=== PATIENT | female | born 1955 | race Caucasian/White ===

== ENCOUNTER 2024-02-15 11:03 | Emergency (ER) | payer OTHER ==
--- NOTE | 2024-02-15 12:12 | RAD REPORT ---
EXAM DESCRIPTION: CT - Head Brain Wo Cont - 02/15/2024 12:02 pm CLINICAL HISTORY: HEADACHE COMPARISON: No comparisons TECHNIQUE: All CT scans are performed using dose optimization technique as appropriate and may inclu de automated exposure control or mA/KV adjustment according to patient size. FINDINGS: No intracranial hemorrhage, hydrocephalus or extra-axial fluid collection.No areas of brai n edema or evidence of midline shift. Mucous retention cyst in the right maxillary sinus . The calvarium is intact. IMPRESSION: No acute intracranial abnormality.
[2024-02-15 12:26] LABS: Absolute Basophils 0.1 K/uL (0-0.5); Absolute Eosinophils 0.2 K/uL (0-0.5); Absolute Monocytes 0.7 K/uL (0.1-1.3); Absolute Neutrophil 6.5 K/uL (1.8-8.0); Basophils % 0.8 % (0-1.3); Eosinophils % 2.6 % (0-4.4); Hematocrit 41.6 % (36.0-45.0); Hemoglobin 13.6 g/dL (12.0-15.0); Lymphocytes % 12.1 % (15.3-44.8); MCH 30.7 pg (27.0-35.0); MCHC 32.6 g/dL (32.0-36.0); MPV 8.3 fL (7.6-11.3); Monocytes % 8.6 % (3.3-12.3); Neutrophils % 75.9 % (41.7-73.7); Platelets 259 thou/uL (152-406); RBC Red Blood Cell Count 4.42 M/uL (3.86-4.86)
[2024-02-15 12:43] LABS: Albumin 3.6 g/dL (3.4-5.0); Albumin/Globulin Ratio 0.8 (1.1-1.8); Anion Gap 8.9 mEq/L (5.0-15.0); Bilirubin Total 0.4 mg/dL (0.2-1.0); Globulin 4.3 g/dL (2.3-3.5); Potassium 3.9 mEq/L (3.5-5.1); Protein, Total 7.9 g/dL (6.4-8.2)
--- NOTE | 2024-02-15 14:17 | EDPHYS ---
Physician Documentation [facility] Name: Krista Damon Age: 68 yrs Sex: Female : 1955 Arrival Date: 02/15/2024 Time: 11:03 Bed 20 Private MD: ED Physician Clarissa Linton HPI: 02/14 12:30 This 68 yrs old Female presents to ER via Ambulatory with complaints of Headache. sp3 12:30 68-year-old female with history of osteopenia now presents to the ED with chief sp3 complaint left-sided headache after having constipation and straining. Patient recently had a T12 compression fracture after lifting something heavy and since then she states she has been having off-and-on constipation. She went to an urgent care a few days ago where she received antibiotics and pain medication which have not helped. She saw Dr. Cee SPENCER for the constipation yesterday after which she prescribed some OTC meds. She mentioned headache to him but recommended no further workup. She presents to the ED here for continued headache. She states she is mainly here just to make sure there is nothing critical going on. She declines any pain medication. Review of systems negative for fever, sinus drainage, neck pain, dental pain, chest pain, shortness of breath, back pain, abdominal pain, nausea, vomiting, diarrhea, syncope, near syncope, numbness or tingling, focal neurological deficits, travel history, known sick contacts, or any other signs or symptoms on ROS at this time.. 13:[address] scan of the head is negative. Laboratory values are sp3 normal. We will safely discharge patient home at this time.. Historical: - Allergies: 11:19 Levaquin; dd2 - Home Meds: 11:19 gabapentin 300 mg oral capsule 1 cap every day at bedtime [Active]; amoxicillin-pot dd2 clavulanate 875-125 mg Oral tablet 1 tab 2 times per day [Active]; - PMHx: 11:19 Osteopenia; dd2 - PSHx: 11:19 None; dd2 - Immunization history:: Adult Immunizations up to date. - Infectious Disease History:: Denies. - Social history:: Smoking status: Patient denies any tobacco usage or history of. ROS: 12:31 Constitutional: Negative for fever, chills, and weight loss, Eyes: Negative for injury, sp3 pain, redness, and discharge, Neck: Negative for injury, pain, and swelling, Cardiovascular: Negative for chest pain, palpitations, and edema, Respiratory: Negative for shortness of breath, cough, wheezing, and pleuritic chest pain, Abdomen/GI: Negative for abdominal pain, nausea, vomiting, diarrhea, and constipation, Back: Negative for injury and pain, MS/Extremity: Negative for injury and deformity, Skin: Negative for injury, rash, and discoloration, Psych: Negative for depression, anxiety, suicide ideation, homicidal ideation, and hallucinations, Allergy/Immunology: Negative for hives, rash, and allergies, Endocrine: Negative for neck swelling, polydipsia, polyuria, polyphagia, and marked weight changes, 12:31 All other systems are negative, Exam: 12:32 Constitutional: This is a well developed, well nourished patient who is awake, alert, sp3 and in no acute distress. Head/Face: Normocephalic, atraumatic. Eyes: Pupils equal round and reactive to light, extra-ocular motions intact. Lids and lashes normal. Conjunctiva and sclera are non-icteric and not injected. Cornea within normal limits. Periorbital areas with no swelling, redness, or edema. ENT: Nares patent. No nasal discharge, no septal abnormalities noted. External auditory canals are clear. Oropharynx with no redness, swelling, or masses, exudates, or evidence of obstruction, uvula midline. Mucous membranes moist. Neck: Trachea midline, no thyromegaly or masses palpated, and no cervical lymphadenopathy. Supple, full range of motion without nuchal rigidity, or vertebral point tenderness. No Meningismus. Chest/axilla: Normal chest wall appearance and motion. Nontender with no deformity. No lesions are appreciated. Cardiovascular: Regular rate and rhythm with a normal S1 and S2. No gallops, murmurs, or rubs. Normal PMI, no JVD. No pulse deficits. Respiratory: Lungs have equal breath sounds bilaterally, clear to auscultation and percussion. No rales, rhonchi or wheezes noted. No increased work of breathing, no retractions or nasal flaring. Abdomen/GI: Soft, non-tender, with normal bowel sounds. No distension or tympany. No guarding or rebound. No evidence of tenderness throughout. Back: No spinal tenderness. No costovertebral tenderness. Full range of motion. Skin: Warm, dry with normal turgor. Normal color with no rashes, no lesions, and no evidence of cellulitis. MS/ Extremity: Pulses equal, no cyanosis. Neurovascular intact. Full, normal range of motion. Neuro: Awake and alert, GCS 15, oriented to person, place, time, and situation. Cranial nerves II-XII grossly intact. Motor strength 5/5 in all extremities. Sensory grossly intact. Cerebellar exam normal. Normal gait. Psych: Awake, alert, with orientation to person, place and time. Behavior, mood, and affect are within normal limits. Vital Signs: 11:13 BP 124 / 78; Pulse 84; Resp 18; Temp 97.2; Pulse Ox 99% ; Weight 68.95 kg; Height 5 ft. dd2 6 in. ; 13:06 BP 128 / 91; Pulse 78; Resp 17 S; Pulse Ox 98% on R/A; kc6 14:26 BP 138 / 70; Pulse 80; Resp 17 S; Pulse Ox 100% on R/A; kc6 11:13 Body Mass Index 24.53 (68.95 kg, 167.64 cm) dd2 MDM: 11:30 Patient medically screened. sp3 12:32 Data reviewed: vital signs, nurses notes. sp3 12:38 ED course: 68-year-old female with headache for the last 48 hours after straining. Will sp3 obtain CT scan of the head and general labs. I am not highly concerned about any intracranial pathology, stroke or mass. CT scan returned at 1230 which demonstrates normal study. Laboratory values are pending. If workup is negative, we will reassure patient and safely discharge her home will continue follow-up to GI.. 14:15 ED course: Full workup negative. Patient still has headache and declines narcotic meds sp3 at this time. I will prescribe tramadol because she changes her mind. She elects to "clear her bowels first" and then worry about the headache. She will follow-up with her PCP. Patient very grateful for her care and all questions been answered. Patient will be safely discharged home at this time.. 02/14 11:50 Order name: CBC with Diff; Complete Time: 12:30 sp3 02/14 11:50 Order name: CMP; Complete Time: 13:17 sp3 02/14 11:50 Order name: CT Head Brain wo Cont; Complete Time: 12:30 sp3 02/14 11:50 Order name: IV Saline Lock; Complete Time: 12:15 sp3 02/14 11:50 Order name: Labs collected and sent; Complete Time: 12:15 sp3 Administered Medications: No medications were administered Disposition Summary: 02/15/24 14:17 Discharge Ordered Notes: Location: Home sp3 Condition: Stable sp3 Diagnosis - Headache sp3 Followup: sp3 - With: Private Physician - When: Upon discharge from the Emergency Department - Reason: Continuance of care Discharge Instructions: - Discharge Summary Sheet sp3 - General Headache Without Cause sp3 Forms: - Medication Reconciliation Form sp3 - Antibiotic Education sp3 - Prescription Opioid Use sp3 - Patient Portal Instructions sp3 - Leadership Thank You Letter sp3 Prescriptions: - Tramadol 50 mg Oral Tablet - take 1 tablet ORAL route every 8 hours as needed; 12 tablet; Refills: 0, sp3 Product Selection Permitted Signatures: Dispatcher [employer] EDMS Clarissa Linton MD MD sp3 MARTIR KIM RN RN dd2 Corrections: (The following items were deleted from the chart) 11:21 11:19 Home Meds: Fosamax 70 mg Oral tab 1 tab once wkly; dd2 dd2 11:51 11:51 Head Brain Wo Cont+CT.RAD.BRZ ordered. EDMS EDMS
--- NOTE | 2024-02-15 14:17 | ER ---
Nurse's Notes [facility] Name: Krista Damon Age: 68 yrs Sex: Female : 1955 Arrival Date: 02/15/2024 Time: 11:03 Bed 20 Private MD: Diagnosis: Headache Presentation: 02/14 11:13 Chief complaint: Patient states: having headaches "for awhile", fx T12 last month, not dd2 sure if hurt self then or when straining going to the bathroom, has a lot of constipation. Also having sharp pains in left ear, left eye area and left back of head. Went to urgent care, had toradol shot and gave amoxicillin rx. Coronavirus screen: At this time, the client does not indicate any symptoms associated with coronavirus-19. Ebola Screen: No symptoms or risks identified at this time. Initial Sepsis Screen: Does the patient meet any 2 criteria? No. Patient's initial sepsis screen is negative. Does the patient have a suspected source of infection? No. Patient's initial sepsis screen is negative. Risk Assessment: Do you want to hurt yourself or someone else? Patient reports no desire to harm self or others. Onset of symptoms is unknown. 11:13 Method Of Arrival: Ambulatory dd2 11:13 Acuity: REMEDIOS 4 dd2 Triage Assessment: 11:19 Headache History: Denies prior headaches. General: Appears in no apparent distress. dd2 Behavior is cooperative, anxious. Pain: Pain currently is 10 out of 10 on a pain scale. Pain began 2-3 days ago. Also complains of constipation. Neuro: Reports headache. Historical: - Allergies: 11: Levaquin; dd2 - Home Meds: : gabapentin 300 mg oral capsule 1 cap every day at bedtime [Active]; amoxicillin-pot dd2 clavulanate 875-125 mg Oral tablet 1 tab 2 times per day [Active]; - PMHx: : Osteopenia; dd2 - PSHx: :19 None; dd2 - Immunization history:: Adult Immunizations up to date. - Infectious Disease History:: Denies. - Social history:: Smoking status: Patient denies any tobacco usage or history of. Screenin:16 [facility] ED Fall Risk Assessment (Adult) History of falling in the last 3 months, kc6 including since admission No falls in past 3 months (0 pts) Confusion or Disorientation No (0 pts) Intoxicated or Sedated No (0 pts) Impaired Gait No (0 pts) Mobility Assist Device Used No (0 pt) Altered Elimination No (0 pt) Score/Fall Risk Level 0 - 2 = Low Risk. Abuse screen: Denies threats or abuse. Denies injuries from another. Nutritional screening: No deficits noted. Tuberculosis screening: No symptoms or risk factors identified. Assessment: 12:16 General: Appears in no apparent distress. uncomfortable, well groomed, well developed, kc6 Behavior is calm, cooperative, appropriate for age. Neuro: Level of Consciousness is awake, alert, obeys commands, Oriented to person, place, time, situation, Appropriate for age Reports headache frontal area. Cardiovascular: Denies chest pain, shortness of breath, Capillary refill < 3 seconds. Respiratory: Airway is patent Trachea midline Respiratory effort is even, unlabored, Respiratory pattern is regular, symmetrical. GI: No signs and/or symptoms were reported involving the gastrointestinal system. : No signs and/or symptoms were reported regarding the genitourinary system. EENT: No signs and/or symptoms were reported regarding the EENT system. Derm: No signs and/or symptoms reported regarding the dermatologic system. Skin is intact, is healthy with good turgor, Skin is pink, warm \\T\\ dry. Musculoskeletal: No signs and/or symptoms reported regarding the musculoskeletal system. Circulation, motion, and sensation intact. Capillary refill < 3 seconds, Range of motion: intact in all extremities. 13:06 Reassessment: Patient appears in no apparent distress at this time. No changes from kc6 previously documented assessment. Patient and/or family updated on plan of care and expected duration. Pain level reassessed. Patient is alert, oriented x 3, equal unlabored respirations, skin warm/dry/pink. 14:26 Reassessment: Patient appears in no apparent distress at this time. No changes from kc6 previously documented assessment. Patient and/or family updated on plan of care and expected duration. Pain level reassessed. Patient is alert, oriented x 3, equal unlabored respirations, skin warm/dry/pink. Vital Signs: 11:13 BP 124 / 78; Pulse 84; Resp 18; Temp 97.2; Pulse Ox 99% ; Weight 68.95 kg; Height 5 ft. dd2 6 in. ; 13:06 BP 128 / 91; Pulse 78; Resp 17 S; Pulse Ox 98% on R/A; kc6 14:26 BP 138 / 70; Pulse 80; Resp 17 S; Pulse Ox 100% on R/A; kc6 11:13 Body Mass Index 24.53 (68.95 kg, 167.64 cm) dd2 ED Course: 11:06 Patient arrived in ED. mg5 11:19 Triage completed. dd2 11:19 Clarissa Linton MD is Attending Physician. sp3 11:19 Arm band placed on right wrist. Patient placed in an exam room, on a stretcher, on dd2 pulse oximetry, Patient notified of wait time. 11:26 Tamy Ontiveros, RN is Primary Nurse. kc6 12:04 CT Head Brain wo Cont In Process Unspecified. EDMS 12:15 Patient has correct armband on for positive identification. Bed in low position. Call kc6 light in reach. Side rails up X 1. Pulse ox on. NIBP on. Door closed. Noise minimized. Lights dimmed. Warm blanket given. Pillow given. 12:15 Inserted saline lock: 20 gauge in left antecubital area, using aseptic technique. Blood kc6 collected. Flushed with 10 mL NS. 14:29 No provider procedures requiring assistance completed. IV discontinued, intact, kc6 bleeding controlled, No redness/swelling at site. Pressure dressing applied. Administered Medications: No medications were administered Medication: 14:30 VIS not applicable for this client. kc6 Outcome: 14:17 Discharge ordered by . sp3 14:29 Discharged to home ambulatory, with friend, kc6 14:29 Condition: good 14:29 Discharge instructions given to patient, Instructed on discharge instructions, follow up and referral plans. no drinking with medication, no driving heavy equipment, medication usage, Demonstrated understanding of instructions, follow-up care, medications, Prescriptions given X 1, 14:30 Patient left the ED. kc6 Signatures: Dispatcher [employer] EDMS Clarissa Linton MD MD sp3 Tamy Ontiveros, RN RN kc6 Briana Harris mg5 MARTIR KIM RN RN dd2 Corrections: (The following items were deleted from the chart) 11:21 11:19 Home Meds: Fosamax 70 mg Oral tab 1 tab once wkly; dd2 dd2
[2024-02-15 14:47] VITALS: TEMP 97.2
[2024-02-15 14:54] VITALS: BP 138/70; O2SAT 100
== END 2024-02-15 14:30 | disposition home or self-care (01) ==
LOC: ER 11:03
DX: R51.9 Headache, unspecified (principal); K59.00 Constipation, unspecified; M85.80 Other specified disorders of bone density and structure, unspecified site
CPT/HCPCS: 36415; 70450; 80053; 85025

== ENCOUNTER 2024-02-20 11:04 | Emergency (ER) | payer OTHER ==
[2024-02-20 12:12] LABS: Absolute Eosinophils 0.1 K/uL (0-0.5); Absolute Lymphocytes (CBC) 0.6 K/uL (0.7-4.9); Absolute Monocytes 0.7 K/uL (0.1-1.3); Absolute Neutrophil 6.3 K/uL (1.8-8.0); Basophils % 0.4 % (0-1.3); Eosinophils % 1.2 % (0-4.4); Hematocrit 38.4 % (36.0-45.0); Hemoglobin 12.8 g/dL (12.0-15.0); Lymphocytes % 8.4 % (15.3-44.8); MCH 31.4 pg (27.0-35.0); MCHC 33.3 g/dL (32.0-36.0); MCV 94.4 fL (80-100); MPV 7.8 fL (7.6-11.3); Monocytes % 8.8 % (3.3-12.3); Neutrophils % 81.2 % (41.7-73.7); Platelets 252 thou/uL (152-406); RBC Red Blood Cell Count 4.07 M/uL (3.86-4.86); Red Cell Distribution Width 13.8 % (12.1-15.2)
[2024-02-20] MEDS ORDERED: KETOROLAC 30 MG/ML INJ ONE (12:26)
[2024-02-20] MEDS ORDERED: ACETAMINOPHEN 500 MG TAB ONE (12:29)
--- NOTE | 2024-02-20 12:29 | RAD REPORT ---
EXAM DESCRIPTION: RAD - Chest Single View - 02/20/2024 12:16 pm CLINICAL HISTORY: CHEST PAIN COMPARISON: Chest Pa And Lat (2 Views) dated 06/28/2016 FINDINGS: Lines: None. Lungs: No evidence of edema or pneumonia. Pleural: No significant pleural effusions or pneumothorax. Cardiac: The heart size is within normal limits. Mediastinum: Within normal limits. Bones: No acute fractures. Other: None IMPRESSION: No acute cardiopulmonary disease.
[2024-02-20 12:30] LABS: Anion Gap 6.1 mEq/L (5.0-15.0); BUN Blood Urea Nitrogen 15 mg/dL (7-18); Bicarbonate 27 mEq/L (21-32); Glomerular Filtration Rate 90 ml/min (=/>90); Glucose Level 99 mg/dL (74-106); Potassium 4.1 mEq/L (3.5-5.1); Sodium Level 136 mEq/L (136-145)
[2024-02-20 12:31] LABS: Troponin High Sensitivity < 3.0 pg/mL (<58.9)
--- NOTE | 2024-02-20 12:54 | ER ---
Nurse's Notes [facility] Name: Krista Damon Age: 68 yrs Sex: Female : 1955 Arrival Date: 02/20/2024 Time: 11:04 Bed 17 Private MD: Diagnosis: Dizziness and giddiness;Anxiety disorder, unspecified Presentation: 02/19 11:20 Chief complaint: Patient states: STARTED TAKING [employer] WEDNESDAY TODAY HAS DIZZINESS AND db NAUSEA. STATES HAS BEEN TAKING MEDICATION ON EMPTY STOMACH. DX WITH SHINGLES TO LEFT INNER EAR WEDNESDAY BY DR BLANK. STATES HAD RECENT CT SCAN. Coronavirus screen: Client denies travel out of the [place] in the last 14 days. At this time, the client does not indicate any symptoms associated with coronavirus-19. Ebola Screen: Patient negative for fever greater than or equal to 101.5 degrees Fahrenheit, and additional compatible Ebola Virus Disease symptoms Patient denies exposure to infectious person. Patient denies travel to an Ebola-affected area in the 21 days before illness onset. No symptoms or risks identified at this time. Initial Sepsis Screen: Does the patient meet any 2 criteria? No. Patient's initial sepsis screen is negative. Does the patient have a suspected source of infection? No. Patient's initial sepsis screen is negative. Risk Assessment: Do you want to hurt yourself or someone else? Patient reports no desire to harm self or others. Onset of symptoms was February 20, 2024. 11:20 Method Of Arrival: Ambulatory db 11:20 Acuity: REMEDIOS 2 db Triage Assessment: 11:29 General: Appears in no apparent distress. comfortable, Behavior is calm, cooperative. db Pain: Denies pain. Neuro: Level of Consciousness is awake, alert, obeys commands, Oriented to person, place, time, situation. Respiratory: Reports Airway is patent Respiratory effort is even, unlabored, Respiratory pattern is regular, symmetrical, Onset: The symptoms/episode began/occurred gradually, the patient has mild shortness of breath. Historical: - Allergies: 11:16 Levaquin; mb9 - PMHx: 11:16 Osteopenia; mb9 - Immunization history:: Adult Immunizations unknown. - Infectious Disease History:: Denies. - Social history:: Smoking status: Patient denies any tobacco usage or history of. Screenin:40 [facility] ED Fall Risk Assessment (Adult) History of falling in the last 3 months, aa5 including since admission No falls in past 3 months (0 pts) Confusion or Disorientation No (0 pts) Intoxicated or Sedated No (0 pts) Impaired Gait No (0 pts) Mobility Assist Device Used No (0 pt) Altered Elimination No (0 pt) Score/Fall Risk Level 0 - 2 = Low Risk Oriented to surroundings, Maintained a safe environment, Educated pt \T\ family on fall prevention, incl call for assistance when getting out of bed. Abuse screen: Denies threats or abuse. Nutritional screening: No deficits noted. Tuberculosis screening: No symptoms or risk factors identified. Assessment: 11:40 General: Appears comfortable, Behavior is calm, cooperative. Pain: Complains of pain in aa5 left side of head. Neuro: Level of Consciousness is awake, alert, obeys commands, Oriented to person, place, time, situation, [employer] [place] are equal bilaterally Moves all extremities. Speech is normal, Facial symmetry appears normal. Cardiovascular: Heart tones S1 S2 present Rhythm is sinus rhythm. Respiratory: Airway is patent Respiratory effort is even, unlabored, Respiratory pattern is regular, symmetrical. GI: Abdomen is non-distended, Bowel sounds present X 4 quads. Abd is soft and non tender X 4 quads. Reports nausea, Patient currently denies vomiting. : No signs and/or symptoms were reported regarding the genitourinary system. EENT: Reports diagnosed with shingles to left ear 1 week ago. . Derm: Skin is pink, warm \T\ dry. Musculoskeletal: Range of motion: intact in all extremities. 12:25 Reassessment: Pt requesting pain medication for headache, does not want any narcotics, aa5 PA was notified. . 13:45 Reassessment: Patient is alert, oriented x 3, equal unlabored respirations, skin aa5 warm/dry/pink. Vital Signs: 11:20 BP 133 / 95; Pulse 86; Resp 16; Temp 99.2; Pulse Ox 98% ; Weight 68.95 kg; Height 5 ft. db 6 in. ; 12:09 BP 110 / 57; Pulse 67; Resp 16; Temp 98.4; Pulse Ox 99% ; go2 12:34 BP 108 / 61; Pulse 75; Resp 20 S; Pulse Ox 98% on R/A; aa5 11:20 Body Mass Index 24.53 (68.95 kg, 167.64 cm) db ED Course: 11:07 Patient arrived in ED. im 11:09 Esther Moe, OSWALDO is Primary Nurse. mb9 11:12 Mick Casarez PA is PHCP. jr8 11:12 Roberto Sainz MD is Attending Physician. jr8 11:16 Arm band placed on. mb9 11:29 Triage completed. db 11:30 Patient placed in an exam room. db 11:35 Emily Kong, RN is Primary Nurse. aa5 11:40 Patient has correct armband on for positive identification. Bed in low position. Call aa5 light in reach. Side rails up X 1. 11:40 Client placed on continuous cardiac and pulse oximetry monitoring. NIBP monitoring aa5 applied. bus driver/monitor on. Pulse ox on. NIBP on. 12:08 CBC with Diff Sent. go2 12:08 Basic Metabolic Panel Sent. go2 12:08 Troponin HS Sent. go2 12:09 Inserted saline lock: 20 gauge in right antecubital area, using aseptic technique. go2 12:17 XRAY Chest (1 view) In Process Unspecified. EDMS 13:45 No provider procedures requiring assistance completed. IV discontinued, intact, aa5 bleeding controlled, No redness/swelling at site. Pressure dressing applied. Administered Medications: 12:28 Not Given (Patient Refused): [id number] mg IVP once hb 12:31 Drug: Acetaminophen PO 1000 mg PO once Route: PO; aa5 13:45 Follow up: Response: No adverse reaction aa5 Medication: 12:44 VIS not applicable for this client. aa5 Outcome: 12:54 Discharge ordered by . jr8 13:45 Discharged to home ambulatory, aa5 13:45 Condition: stable 13:45 Discharge instructions given to patient, Instructed on discharge instructions, follow up and referral plans. Demonstrated understanding of instructions, follow-up care, 13:49 Patient left the ED. hb Signatures: Dispatcher [employer] EDMS Emily Kong, OSWALDO CHACON aa5 Mick Casarez PA PA jr8 Yakelin Lopez RN RN Malaika Nation RN RN db Esther Moe, RN OSWALDO mb9 Alison Marroquin Culbertson, Kelly, RN RN go2
--- NOTE | 2024-02-20 12:54 | EDPHYS ---
Physician Documentation [facility] Name: Krista Damon Age: 68 yrs Sex: Female : 1955 Arrival Date: 02/20/2024 Time: 11:04 Bed 17 Private MD: ED Physician Roberto Sainz HPI: 02/19 13:27 This 68 yrs old Female presents to ER via Ambulatory with complaints of Dizziness, jr8 Nausea. 13:27 Onset: The symptoms/episode began/occurred gradually, 1 day(s) ago. Modifying factors: jr8 The symptoms are alleviated by nothing, the symptoms are aggravated by nothing. Associated signs and symptoms: The patient has no apparent associated signs or symptoms. Severity of symptoms: At their worst the symptoms were mild in the emergency department the symptoms have improved. Patient's baseline: Neuro: alert and fully oriented, Motor: no deficits, Ambulation: walks without assistance, Speech: normal. The patient has not experienced similar symptoms in the past. The patient has been recently seen by a physician:. Patient recently diagnosed with internal shingles on the left side after having a continuation of left-sided head pain and ear pain that was sharp in nature. Recently started on valacyclovir. Had been nauseated since being on the medication but today both a little dizzy and short of breath. Was concerned that something else was going on. This past Wednesday because of the head pain also had a CT of the head without acute findings.. Historical: - Allergies: 11:16 Levaquin; mb9 - PMHx: 11:16 Osteopenia; mb9 - Immunization history:: Adult Immunizations unknown. - Infectious Disease History:: Denies. - Social history:: Smoking status: Patient denies any tobacco usage or history of. ROS: 13:27 Eyes: Negative for injury, pain, redness, and discharge, ENT: Negative for injury, jr8 pain, and discharge, Neck: Negative for injury, pain, and swelling, Cardiovascular: Negative for chest pain, palpitations, and edema, 13:27 Abdomen/GI: Negative for abdominal pain, nausea, vomiting, diarrhea, and constipation, Back: Negative for injury and pain, MS/Extremity: Negative for injury and deformity, Skin: Negative for injury, rash, and discoloration, 13:27 Respiratory: Positive for shortness of breath, 13:27 Neuro: Positive for dizziness, Exam: 13:27 Constitutional: This is a well developed, well nourished patient who is awake, alert, jr8 and in no acute distress. Eyes: Pupils equal round and reactive to light, extra-ocular motions intact. Lids and lashes normal. Conjunctiva and sclera are non-icteric and not injected. Cornea within normal limits. Periorbital areas with no swelling, redness, or edema. ENT: Nares patent. No nasal discharge, no septal abnormalities noted. Tympanic membranes are normal and external auditory canals are clear. Oropharynx with no redness, swelling, or masses, exudates, or evidence of obstruction, uvula midline. Mucous membranes moist. Neck: Trachea midline, no thyromegaly or masses palpated, and no cervical lymphadenopathy. Supple, full range of motion without nuchal rigidity, or vertebral point tenderness. No Meningismus. Cardiovascular: Regular rate and rhythm with a normal S1 and S2. No gallops, murmurs, or rubs. Normal PMI, no JVD. No pulse deficits. Respiratory: Lungs have equal breath sounds bilaterally, clear to auscultation and percussion. No rales, rhonchi or wheezes noted. No increased work of breathing, no retractions or nasal flaring. Abdomen/GI: Soft, non-tender, with normal bowel sounds. No distension or tympany. No guarding or rebound. No evidence of tenderness throughout. Back: No spinal tenderness. No costovertebral tenderness. Full range of motion. Skin: Warm, dry with normal turgor. Normal color with no rashes, no lesions, and no evidence of cellulitis. MS/ Extremity: Pulses equal, no cyanosis. Neurovascular intact. Full, normal range of motion. Neuro: Awake and alert, GCS 15, oriented to person, place, time, and situation. Cranial nerves II-XII grossly intact. Motor strength 5/5 in all extremities. Sensory grossly intact. Cerebellar exam normal. Normal gait. 13:27 ECG was reviewed by the Attending Physician. [facility] Vital Signs: 11:20 BP 133 / 95; Pulse 86; Resp 16; Temp 99.2; Pulse Ox 98% ; Weight 68.95 kg; Height 5 ft. db 6 in. ; 12:09 BP 110 / 57; Pulse 67; Resp 16; Temp 98.4; Pulse Ox 99% ; go2 12:34 BP 108 / 61; Pulse 75; Resp 20 S; Pulse Ox 98% on R/A; aa5 11:20 Body Mass Index 24.53 (68.95 kg, 167.64 cm) db MDM: 11:25 Patient medically screened. 12:34 Differential diagnosis: cardiac arrhythmia, CVA, hypovolemia, idiopathic dizziness, jr8 TIA, vertigo, anxiety, HTN. Data reviewed: vital signs, nurses notes, lab test result(s), EKG, radiologic studies, plain films. Independent interpretation of the following test(s) in the Emergency Department EKG: See my EKG interpretation above X-Ray: My interpretation is No acute cardiopulmonary findings . Counseling: I had a detailed discussion with the patient and/or guardian regarding the historical points, exam findings, and any diagnostic results supporting the discharge/admit diagnosis, lab results, radiology results, the need for outpatient follow up, a family practitioner, to return to the emergency department if symptoms worsen or persist or if there are any questions or concerns that arise at home. ED course: Discussed with patient that all labs, imaging, EKG is unremarkable and without acute findings. Patient had CT on Wednesday and was unremarkable. Hemodynamically stable otherwise and patient is doing well. Most likely small anxiety attack coupled with the continuation of pain that she has been experiencing from the internal shingles. Needs to follow-up with primary care to ensure she is doing well. If she were to worsen or have change come back for reevaluation. Patient understood the plan at this time.. 02/19 11:25 Order name: Basic Metabolic Panel; Complete Time: 02/19 11:25 Order name: CBC with Diff; Complete Time: :02/19 11:25 Order name: Troponin HS; Complete Time: 02/19 11:25 Order name: XRAY Chest (1 view); Complete Time: 02/19 11:25 Order name: EKG; Complete Time: 11:02/19 11:25 Order name: Cardiac monitoring; Complete Time: 11:53 02/19 11:25 Order name: EKG - Nurse/Tech; Complete Time: 12:02/19 11:25 Order name: IV Saline Lock; Complete Time: 12:8 02/19 11:25 Order name: Labs collected and sent; Complete Time: 12:8 02/19 11:25 Order name: O2 Per Protocol; Complete Time: 8 02/19 11: Order name: O2 Sat Monitoring; Complete Time: EC:27 Rate is 72 beats/min. Rhythm is regular, Normal Sinus Rhythm. QRS [place] is Normal. [place] jr8 interval is normal. QRS interval is normal. QT interval is normal. No Q waves. T waves are Normal. No ST changes noted. Clinical impression: Normal ECG. Interpreted by me. Reviewed by me. Administered Medications: 12:28 Not Given (Patient Refused): [id number] mg IVP once hb 12:31 Drug: Acetaminophen PO 1000 mg PO once Route: PO; aa5 13:45 Follow up: Response: No adverse reaction aa5 Disposition Summary: 02/20/24 12:54 Discharge Ordered Notes: Location: Home jr8 Problem: new jr8 Symptoms: have improved jr8 Condition: Stable jr8 Diagnosis - Dizziness and giddiness jr8 - Anxiety disorder, unspecified jr8 Followup: jr8 - With: Private Physician - When: 2 - 3 days - Reason: Recheck today's complaints, Continuance of care, Re-evaluation by your physician Discharge Instructions: - Discharge Summary Sheet jr8 - Panic Attack jr8 - Dizziness jr8 Forms: - Medication Reconciliation Form jr8 - Antibiotic Education jr8 - Prescription Opioid Use jr8 - Patient Portal Instructions jr8 - Leadership Thank You Letter jr8 Signatures: Dispatcher [employer] EDTX Emily Kong RN RN aa5 Mick Casarez PA PA jr8 Malaika Nation RN RN db Esther Moe RN RN mb9 Yakelin Lopez RN Corrections: (The following items were deleted from the chart) 12:54 12:34 ED course: Discussed with patient that all labs, imaging, EKG is unremarkable and jr8 without acute findings. Hemodynamically stable otherwise and patient is doing well. Most likely small anxiety attack coupled with the continuation of pain that she has been experiencing from the internal shingles. Needs to follow-up with primary care to ensure she is doing well. If she were to worsen or have change come back for reevaluation. Patient understood the plan at this time.. jr8
[2024-02-20 14:04] VITALS: TEMP 98.4
[2024-02-20 14:10] VITALS: BP 108/61; O2SAT 98
--- NOTE | 2024-02-22 17:52 | EKG ---
Test Date: 2024-02-20 Test Time: 12:22:07 [employer]: LETTY MEASUREMENT RESULTS: Intervals: Rate: 72 FL: 122 QRSD: 68 QT: 394 QTc: 431 Etta: P: 56 FL: 122 QRS: 37 T: 51 INTERPRETIVE STATEMENTS: Normal sinus rhythm Low voltage QRS Borderline ECG No previous ECG available for comparison Electronically Signed On 02-22-24 17:47:45 CDT by Lars Langston
== END 2024-02-20 13:49 | disposition home or self-care (01) ==
LOC: ER 11:04
DX: F41.9 Anxiety disorder, unspecified (principal)
CPT/HCPCS: 36415; 71045; 80048; 84484; 85025; 93005; 99284

== ENCOUNTER 2024-03-13 13:52 | Emergency (ER) | payer OTHER ==
--- NOTE | 2024-03-13 16:00 | RAD REPORT ---
EXAM DESCRIPTION: MRI - Brain Wo Cont - 03/13/2024 3:40 pm CLINICAL HISTORY: Vision loss COMPARISON: Head CT February 2024 TECHNIQUE: Axial, sagittal, and coronal magnetic resonance images of the brain were obtained. FINDINGS: Moderate areas of abnormal signal are present within predominantly deep and subcortical wh ite matter bilaterally. They vary in size from a few millimeters to 7 millimeters. Diffusion-weighted/ADC mapping does not reveal evidence of acute infarction. The ventricles are normal caliber. An extra-axial fluid collection is not noted. Fluid within the sinuses/mastoids is not seen IMPRESSION: Moderate areas of abnormal signal within predominantly deep and subcortical white matter presumably ischemic changes secondary to small vessel disease. Another consideration is that they may represent a demyelinated process such as multiple sclerosis.
--- NOTE | 2024-03-13 16:13 | ER ---
Nurse's Notes [facility] Name: Krista Damon Age: 68 yrs Sex: Female : 1955 Arrival Date: 03/13/2024 Time: 13:52 Bed 5 Private MD: Diagnosis: Headache;Monocular vision loss Presentation: 03/13 14:13 Chief complaint: Patient states: Left sided headache X1 month. Pt states that she was cm10 seen at the eye doctor today and was told to come to the ER for an MRI of the brain due to having vision loss to her left eye since October 04. Coronavirus screen: Client denies travel out of the [place] in the last 14 days. At this time, the client does not indicate any symptoms associated with coronavirus-19. Ebola Screen: Patient denies travel to an Ebola-affected area in the 21 days before illness onset. No symptoms or risks identified at this time. Initial Sepsis Screen: Does the patient meet any 2 criteria? HR > 90 bpm. Does the patient have a suspected source of infection? No. Patient's initial sepsis screen is negative. Risk Assessment: Do you want to hurt yourself or someone else? Patient reports no desire to harm self or others. Onset of symptoms was March 13, 2024. 14:13 Method Of Arrival: Ambulatory cm10 14:13 Acuity: REMEDIOS 3 cm10 Triage Assessment: 14:14 General: Appears in no apparent distress. comfortable, Behavior is calm, cooperative. cm10 Neuro: No deficits noted. Level of Consciousness is awake, alert, obeys commands, Oriented to person, place, time, situation, Appropriate for age. Historical: - Allergies: 14:14 Levaquin; cm10 - PMHx: 14:14 Osteopenia; cm10 - Immunization history:: Adult Immunizations up to date. - Infectious Disease History:: Denies. - Social history:: Smoking status: Patient denies any tobacco usage or history of. - Family history:: not pertinent. Screenin:35 [facility] ED Fall Risk Assessment (Adult) History of falling in the last 3 months, dd2 including since admission No falls in past 3 months (0 pts) Confusion or Disorientation No (0 pts) Intoxicated or Sedated No (0 pts) Impaired Gait No (0 pts) Mobility Assist Device Used No (0 pt) Altered Elimination No (0 pt) Score/Fall Risk Level 0 - 2 = Low Risk Oriented to surroundings, Maintained a safe environment, Hourly rounding (assess needs \T\ fall precautionary measures) done. Abuse screen: Denies threats or abuse. Nutritional screening: No deficits noted. Tuberculosis screening: No symptoms or risk factors identified. Assessment: 14:35 General: Appears in no apparent distress. Behavior is calm, cooperative, appropriate dd2 for age. Pain: Complains of pain in left parietal area Pain currently is 4 out of 10 on a pain scale. Neuro: Level of Consciousness is awake, alert, obeys commands, Oriented to person, place, time, situation, Appropriate for age Reports headache in left parietal area, decrease in vision since October. Cardiovascular: No deficits noted. Respiratory: No deficits noted. GI: No deficits noted. No signs and/or symptoms were reported involving the gastrointestinal system. : No deficits noted. No signs and/or symptoms were reported regarding the genitourinary system. EENT: Reports decrease in vision since October . Derm: No deficits noted. No signs and/or symptoms reported regarding the dermatologic system. Musculoskeletal: No deficits noted. No signs and/or symptoms reported regarding the musculoskeletal system. 16:30 Reassessment: DC HOME AMBULATORY. bp Vital Signs: 14:13 BP 140 / 89; Pulse 104; Resp 16; Temp 97.7; Pulse Ox 98% ; Weight 67.13 kg; Height 5 cm10 ft. 6 in. ; Pain 4/10; 14:56 BP 124 / 81; Pulse 91; Resp 16; Pulse Ox 97% ; dd2 16:02 BP 137 / 93; Pulse 86; Resp 16; Pulse Ox 98% ; dd2 14:13 Body Mass Index 23.89 (67.13 kg, 167.64 cm) cm10 14:13 Pain Scale: Adult cm10 ED Course: 13:55 Patient arrived in ED. jj6 14:05 Devin Castrejon MD is Attending Physician. rt 14:14 Triage completed. cm10 14:14 Arm band placed on Patient placed in an exam room, on a stretcher. cm10 14:35 Patient has correct armband on for positive identification. Bed in low position. Call dd2 light in reach. Side rails up X2. Provided Education on: call light, procedures. Client placed on continuous cardiac and pulse oximetry monitoring. NIBP monitoring applied. Door closed. Warm blanket given. Verbal reassurance given. 14:35 No provider procedures requiring assistance completed. Patient did not have IV access dd2 during this emergency room visit. 14:51 MARTIR KIM, RN is Primary Nurse. dd2 14:53 Patient moved to MRI via wheelchair. ko1 15:42 MRI - Brain Wo Cont In Process Unspecified. EDMS 16:11 Chidi Marie MD is Referral Physician. rt Administered Medications: No medications were administered Medication: 14:35 VIS not applicable for this client. dd2 Outcome: 16:12 Discharge ordered by MD. rt 16:30 Discharged to home ambulatory, bp 16:30 Condition: stable 16:30 Discharge instructions given to patient, Instructed on discharge instructions, follow up and referral plans. Demonstrated understanding of instructions, follow-up care, 16:30 Patient left the ED. bp Signatures: Dispatcher [employer] EDMS Orestes Ayers, RN RN bp Maxine Mcfadden jj6 Anaya King RN RN ko1 Devin Castrejon MD MD rt Pippa Valadez, OSWALDO RN cm10 MARTIR KIM, RN RN dd2
--- NOTE | 2024-03-13 16:13 | EDPHYS ---
Physician Documentation [facility] Name: Krista Damon Age: 68 yrs Sex: Female : 1955 Arrival Date: 03/13/2024 Time: 13:52 Bed 5 Private MD: ED Physician Devin Castrejon HPI: 03/13 15:54 This 68 yrs old Female presents to ER via Ambulatory with complaints of Headache. rt 15:54 Patient presents to the ED with a left-sided headache for about 1 month. Patient had a rt negative CT scan here, primary treating her for an apparent shingles infection possibly causing the pain. The patient subsequently had decreasing vision in her left eye, went to her eye doctor, stated that everything was normal save for visual acuity, no glaucoma, optic nerve appeared to be okay. Was sent here for MRI to rule out central process. Denies other acute complaints at this time, symptoms are moderate in severity, no other aggravating or alleviating factors.. Historical: - Allergies: 14:14 Levaquin; cm10 - PMHx: 14:14 Osteopenia; cm10 - Immunization history:: Adult Immunizations up to date. - Infectious Disease History:: Denies. - Social history:: Smoking status: Patient denies any tobacco usage or history of. - Family history:: not pertinent. ROS: 15:54 Constitutional: Negative for fever, chills, and weight loss, Cardiovascular: Negative rt for chest pain, palpitations, and edema, Respiratory: Negative for shortness of breath, cough, wheezing, and pleuritic chest pain, Abdomen/GI: Negative for abdominal pain, nausea, vomiting, diarrhea, and constipation, MS/Extremity: Negative for injury and deformity, Skin: Negative for injury, rash, and discoloration, 15:54 Eyes: Positive for pain, vision loss, 15:54 ENT: Positive for 15:54 Neuro: Positive for headache, Negative for loss of consciousness, Exam: 15:54 Constitutional: This is a well developed, well nourished patient who is awake, alert, rt and in no acute distress. Chest/axilla: Normal chest wall appearance and motion. Nontender with no deformity. No lesions are appreciated. Cardiovascular: Regular rate and rhythm with a normal S1 and S2. No gallops, murmurs, or rubs. Normal PMI, no JVD. No pulse deficits. Respiratory: Lungs have equal breath sounds bilaterally, clear to auscultation and percussion. No rales, rhonchi or wheezes noted. No increased work of breathing, no retractions or nasal flaring. Abdomen/GI: Soft, non-tender, with normal bowel sounds. No distension or tympany. No guarding or rebound. No evidence of tenderness throughout. 15:54 Eyes: Extraocular movements: intact throughout, Conjunctiva: normal, 15:54 Neuro: Cranial nerves II through XII intact, strength and sensation intact in upper and lower extremities, Vital Signs: 14:13 BP 140 / 89; Pulse 104; Resp 16; Temp 97.7; Pulse Ox 98% ; Weight 67.13 kg; Height 5 cm10 ft. 6 in. ; Pain 4/10; 14:56 BP 124 / 81; Pulse 91; Resp 16; Pulse Ox 97% ; dd2 16:02 BP 137 / 93; Pulse 86; Resp 16; Pulse Ox 98% ; dd2 14:13 Body Mass Index 23.89 (67.13 kg, 167.64 cm) cm10 14:13 Pain Scale: Adult cm10 MDM: 14:15 Patient medically screened. rt 16:24 Differential diagnosis: Multiple sclerosis, chronic ischemia. Data reviewed: vital rt signs, nurses notes, radiologic studies. Consideration of Admission/Observation Escalation of care including admission/observation considered. Management of patient was discussed with the following: Primary Care Provider: Discussed with Dr. Marie, no need to admit, will follow-up the patient as an outpatient, will refer to neurology.. Counseling: I had a detailed discussion with the patient and/or guardian regarding the historical points, exam findings, and any diagnostic results supporting the discharge/admit diagnosis, radiology results, the need for outpatient follow up, to return to the emergency department if symptoms worsen or persist or if there are any questions or concerns that arise at home. 03/13 14:25 Order name: MRI - Brain Wo Cont; Complete Time: 16:01 rt Administered Medications: No medications were administered Disposition Summary: 03/13/24 16:12 Discharge Ordered Notes: Location: Home rt Problem: an ongoing problem rt Symptoms: are unchanged rt Condition: Stable rt Diagnosis - Headache rt - Monocular vision loss rt Followup: rt - With: Chidi Marie MD - When: 2 - 3 days - Reason: Discharge Instructions: - Discharge Summary Sheet rt - General Headache Without Cause rt - Multiple Sclerosis rt Forms: - Medication Reconciliation Form rt - Antibiotic Education rt - Prescription Opioid Use rt - Patient Portal Instructions rt - Leadership Thank You Letter rt Signatures: Dispatcher [employer] Devin Callejas MD MD rt Pippa Valadez, RN RN cm10
[2024-03-13 16:39] VITALS: TEMP 97.7
[2024-03-13 16:41] VITALS: BP 137/93; O2SAT 98
== END 2024-03-13 16:30 | disposition home or self-care (01) ==
LOC: ER 13:52
DX: R51.9 Headache, unspecified (principal); H54.60 Unqualified visual loss, one eye, unspecified
CPT/HCPCS: 70551; 99284

== ENCOUNTER 2024-03-13 19:34 | Observation (INO) | payer OTHER ==
[2024-03-13] MEDS ORDERED: NA CHLORIDE 0.9% 1,000 ML ONE (21:20)
[2024-03-13] MEDS ORDERED: DIPHENHYDRAMINE 50 MG/ML VIAL ONE (21:20)
[2024-03-13 21:44] LABS: Absolute Basophils 0.1 K/uL (0-0.5); Absolute Eosinophils 0.2 K/uL (0-0.5); Absolute Lymphocytes (CBC) 1.1 K/uL (0.7-4.9); Absolute Monocytes 0.9 K/uL (0.1-1.3); Absolute Neutrophil 5.9 K/uL (1.8-8.0); Basophils % 0.6 % (0-1.3); Eosinophils % 2.1 % (0-4.4); Hematocrit 38.1 % (36.0-45.0); Hemoglobin 12.9 g/dL (12.0-15.0); Lymphocytes % 13.6 % (15.3-44.8); MCH 31.9 pg (27.0-35.0); MCHC 33.9 g/dL (32.0-36.0); MCV 93.9 fL (80-100); MPV 7.3 fL (7.6-11.3); Monocytes % 10.5 % (3.3-12.3); Neutrophils % 73.2 % (41.7-73.7); Platelets 274 thou/uL (152-406); RBC Red Blood Cell Count 4.06 M/uL (3.86-4.86); Red Cell Distribution Width 14.9 % (12.1-15.2)
[2024-03-13 21:57] LABS: Anion Gap 9.8 mEq/L (5.0-15.0); Potassium 3.8 mEq/L (3.5-5.1)
--- NOTE | 2024-03-13 22:33 | EDPHYS ---
Physician Documentation [facility] Name: Krista Damon Age: 68 yrs Sex: Female : 1955 Arrival Date: 03/13/2024 Time: 19:34 Bed 18 Private MD: ED Physician Seth Briceno HPI: 03/13 20:36 This 68 yrs old Female presents to ER via Ambulatory with complaints of ec2 Headache. 20:36 Patient arrives today for evaluation of headache, left-sided, along with left blurry ec2 vision. External records reviewed that she was here earlier today had an MRI that showed possible ischemic changes versus MS flare. Plan to follow-up outpatient. States that the pain is unrelenting and return to be reevaluated. . Historical: - Allergies: 20:30 Levaquin; cm10 - PMHx: 20:30 Osteopenia; cm10 - Immunization history:: Adult Immunizations up to date. - Infectious Disease History:: Denies. - Social history:: Smoking status: Patient denies any tobacco usage or history of. ROS: 20:36 Constitutional: as per hpi ec2 Exam: 20:36 Constitutional: GEN: NAD Head: atraumatic Eyes: EOMI Ears: External ears are ec2 normal. CV: regular rate LUNGS: no respiratory distress ABD: non-distended SKIN: no evidence of rashes MSK: no evidence of trauma. Neuro: Cranial nerves II through XII intact, strength intact all 4 extremities. Vital Signs: 20:29 BP 135 / 85; Pulse 83; Resp 16; Temp 97.1(IR); Pulse Ox 100% ; Pain 9/10; cm10 22:53 BP 132 / 82; Pulse 80; Resp 16; Pulse Ox 99% on R/A; hb 23:30 BP 122 / 76; Pulse 72; Resp 16; Pulse Ox 99% on R/A; hb 20:29 Pain Scale: Adult cm10 MDM: 20:34 Patient medically screened. ec2 20:36 Data reviewed: vital signs. ED course: Patient arrives today for left-sided headache ec2 otherwise well-appearing with an intact neurologic exam. Will obtain lab work, urine studies, treat the patient's headache. Suspect possible MS flare given the patient's monocular vision loss along with left-sided headache. Will give the patient high-dose steroids as well as droperidol, Benadryl and crystalloid.. 22:25 ED course: Patient refused steroids. Patient understanding regarding risk and benefit.. ec2 22:32 ED course: CBC is reassuring, metabolic profile reassuring. I discussed case with Dr. vinicio Marie who will admit, will place admission orders under him and have neurology consult. . 03/13 20:35 Order name: CBC with Diff; Complete Time: 22:32 ec2 03/13 20:35 Order name: BMP; Complete Time: 22:32 ec2 03/13 20:35 Order name: UAM ec2 03/13 22:07 Order name: CRP ec2 03/13 22:44 Order name: CBC with Automated Diff EDMS 03/13 22:44 Order name: Comprehensive Metabolic Panel EDMS 03/13 22:44 Order name: Urinalysis w/ reflexes EDMS 03/13 22:44 Order name: CONS Physician Consult EDMS 03/13 20:35 Order name: IV; Complete Time: 21:35 ec2 Administered Medications: 21:35 Drug: NS 0.9% IV 1000 ml IV at 1 bolus Per protocol; 1000 mL bolus Route: IV; Rate: 1 hb bolus; Site: left antecubital; 22:24 Follow up: Response: No adverse reaction; IV Status: Completed infusion; IV Intake: hb 1000ml 22:02 Drug: Droperidol IVP 1.25 mg IVP once Route: IVP; Site: left antecubital; hb 22:36 Follow up: Response: No adverse reaction hb 22:02 Drug: diphenhydrAMINE IVP 12.5 mg IVP once Route: IVP; Site: left antecubital; hb 22:35 Follow up: Response: No adverse reaction hb 22:35 Not Given (Patient Refused): [id number] mg IVP once hb Disposition Summary: 03/13/24 22:32 Hospitalization Ordered Notes: Hospitalization Status: Inpatient Admission ec2 Provider: Chidi Marie ecAlthea Location: Telemetry/[facility] (Inpatient) ec2 Condition: Stable ec2 Problem: an ongoing problem ec2 Symptoms: have improved ec2 Bed/Room Type: Standard ec2 Room Assignment: 405(03/13/24 22:58) kl Diagnosis - Headache ec2 Forms: - Medication Reconciliation Form ec2 - SBAR form ec2 - Leadership Thank You Letter ec2 Signatures: Dispatcher [employer] Bere Jones RN RN kl Baxter, Heather, RN RN hb Martinez, Clarissa, RN RN 10 Seth Briceno MD MD ec2 Corrections: (The following items were deleted from the chart) 22:46 22:32 ec2 kl 22:58 22:[address] [place] [address]
--- NOTE | 2024-03-13 22:33 | ER ---
Nurse's Notes [facility] Name: Krista Damon Age: 68 yrs Sex: Female : 1955 Arrival Date: 03/13/2024 Time: 19:34 Bed 18 Private MD: Diagnosis: Headache Presentation: 03/13 20:29 Chief complaint: Patient states: Was just discharged from here and started having pain cm10 to her left eye while eating dinner so she came back to the ER to be evaluated. Coronavirus screen: Client denies travel out of the [place] in the last 14 days. Ebola Screen: Patient denies travel to an Ebola-affected area in the 21 days before illness onset. No symptoms or risks identified at this time. Initial Sepsis Screen: Does the patient meet any 2 criteria? No. Patient's initial sepsis screen is negative. Does the patient have a suspected source of infection? No. Patient's initial sepsis screen is negative. Risk Assessment: Do you want to hurt yourself or someone else? Patient reports no desire to harm self or others. Onset of symptoms was March 13, 2024. 20:29 Method Of Arrival: Ambulatory cm10 20:29 Acuity: REMEDIOS 3 cm10 Triage Assessment: 20:30 General: Appears in no apparent distress. comfortable, Behavior is calm, cooperative. cm10 Neuro: No deficits noted. Level of Consciousness is awake, alert, obeys commands, Oriented to person, place, time, situation, Appropriate for age. Respiratory: No deficits noted. Airway is patent Respiratory effort is even, unlabored, Respiratory pattern is regular, symmetrical. Historical: - Allergies: 20:30 Levaquin; cm10 - PMHx: 20:30 Osteopenia; cm10 - Immunization history:: Adult Immunizations up to date. - Infectious Disease History:: Denies. - Social history:: Smoking status: Patient denies any tobacco usage or history of. Screenin:35 [facility] ED Fall Risk Assessment (Adult) History of falling in the last 3 months, hb including since admission No falls in past 3 months (0 pts) Confusion or Disorientation No (0 pts) Intoxicated or Sedated No (0 pts) Impaired Gait No (0 pts) Mobility Assist Device Used No (0 pt) Altered Elimination No (0 pt) Score/Fall Risk Level 0 - 2 = Low Risk Oriented to surroundings, Maintained a safe environment, Educated pt \T\ family on fall prevention, incl call for assistance when getting out of bed. Abuse screen: Denies threats or abuse. Denies injuries from another. Nutritional screening: No deficits noted. Tuberculosis screening: No symptoms or risk factors identified. Assessment: 21:36 General: Appears in no apparent distress. Behavior is calm, cooperative, Smells of hb Reports. Pain: Pain currently is 9 out of 10 on a pain scale. Neuro: Level of Consciousness is awake, alert, obeys commands, Oriented to person, place, time, situation, Reports headache. Cardiovascular: Patient's skin is warm and dry. Respiratory: Respiratory effort is even, unlabored, Respiratory pattern is regular, symmetrical. GI: No signs and/or symptoms were reported involving the gastrointestinal system. : No signs and/or symptoms were reported regarding the genitourinary system. EENT: No signs and/or symptoms were reported regarding the EENT system. Derm: Skin is pink, warm \T\ dry. Musculoskeletal: No signs and/or symptoms reported regarding the musculoskeletal system. Vital Signs: 20:29 BP 135 / 85; Pulse 83; Resp 16; Temp 97.1(IR); Pulse Ox 100% ; Pain 9/10; cm10 22:53 BP 132 / 82; Pulse 80; Resp 16; Pulse Ox 99% on R/A; hb 23:30 BP 122 / 76; Pulse 72; Resp 16; Pulse Ox 99% on R/A; hb 20:29 Pain Scale: Adult cm10 ED Course: 19:36 Patient arrived in ED. im 20:11 Seth Briceno MD is Attending Physician. ec2 20:30 Triage completed. cm10 20:31 Arm band placed on Patient placed in waiting room. cm10 21:35 BMP Sent. hb 21:35 CBC with Diff Sent. hb 21:35 Initial lab(s) drawn, by me, sent to lab. Inserted saline lock: 20 gauge in right hb antecubital area, using aseptic technique. Blood collected. Flushed with 10 mL NS. 21:37 Patient has correct armband on for positive identification. Provided Education on: hb tests, result times. 22:32 Chidi Marie MD is Hospitalizing Provider. ec2 22:35 Yakelin Lopez RN is Primary Nurse. hb 23:45 No provider procedures requiring assistance completed. Patient admitted, IV remains in ss place. Administered Medications: 21:35 Drug: NS 0.9% IV 1000 ml IV at 1 bolus Per protocol; 1000 mL bolus Route: IV; Rate: 1 hb bolus; Site: left antecubital; 22:24 Follow up: Response: No adverse reaction; IV Status: Completed infusion; IV Intake: hb 1000ml 22:02 Drug: Droperidol IVP 1.25 mg IVP once Route: IVP; Site: left antecubital; hb 22:36 Follow up: Response: No adverse reaction hb 22:02 Drug: diphenhydrAMINE IVP 12.5 mg IVP once Route: IVP; Site: left antecubital; hb 22:35 Follow up: Response: No adverse reaction hb 22:35 Not Given (Patient Refused): [id number] mg IVP once hb Medication: 21:37 VIS not applicable for this client. hb Intake: 22:24 IV: 1000ml; Total: 1000ml. hb Outcome: 22:32 Decision to Hospitalize by Provider. ec2 23:45 Admitted to Med/surg via wheelchair, 23:45 Condition: good 23:45 Instructed on the need for admit, 23:46 Patient left the ED. Signatures: Stefanie Chapa RN RN Yakelin Lopez RN RN Alison Marroquin Clarissa RN RN cm10 Seth Briceno MD MD ec2
[2024-03-13] MEDS ORDERED: ACETAMINOPHEN 325 MG TABLET PO PRN (22:41)
[2024-03-13] MEDS ORDERED: ONDANSETRON 4 MG/2 ML VIAL IV PRN (22:41)
[2024-03-14 00:18] VITALS: BMI 24.5
[2024-03-14 00:58] VITALS: O2SAT 99
[2024-03-14 06:54] LABS: Absolute Eosinophils 0.4 K/uL (0-0.5); Absolute Lymphocytes (CBC) 0.9 K/uL (0.7-4.9); Absolute Monocytes 0.9 K/uL (0.1-1.3); Absolute Neutrophil 4.6 K/uL (1.8-8.0); Basophils % 0.5 % (0-1.3); Hematocrit 36.5 % (36.0-45.0); Lymphocytes % 13.3 % (15.3-44.8); MCH 31.2 pg (27.0-35.0); MCHC 32.9 g/dL (32.0-36.0); MCV 94.9 fL (80-100); MPV 7.8 fL (7.6-11.3); Monocytes % 13.6 % (3.3-12.3); Neutrophils % 66.6 % (41.7-73.7); Platelets 239 thou/uL (152-406); RBC Red Blood Cell Count 3.85 M/uL (3.86-4.86)
[2024-03-14 07:11] LABS: Albumin/Globulin Ratio 0.9 (1.1-1.8); Anion Gap 5.3 mEq/L (5.0-15.0); Bilirubin Total 0.5 mg/dL (0.2-1.0); Globulin 3.5 g/dL (2.3-3.5); Potassium 4.3 mEq/L (3.5-5.1); Protein, Total 6.5 g/dL (6.4-8.2)
[2024-03-14] MEDS: ACETAMINOPHEN 500 MG TAB PO PRN (13:33)
[2024-03-14 13:51] LABS: Specific Gravity 1.006 (1.005-1.030); Sqamous Epithelial <5 /HPF (None Seen); Urine Bacteria None Seen /HPF (<20); Urine Bilirubin NEGATIVE (Negative); Urine Blood 2+ (Negative); Urine Clarity Clear (Clear); Urine Color Colorless (Yellow); Urine Culture Reflex Order NOT NEEDED; Urine Glucose NEGATIVE (Negative); Urine Ketones NEGATIVE (Negative); Urine Micro Reflex YN NO BILL MICROSCOPIC; Urine Mucus Slight /HPF (None Seen); Urine Nitrite NEGATIVE (Negative); Urine Protein NEGATIVE (Negative); Urine Urobilinogen Normal (Normal); Urine WBC <5 /HPF (<5); Urine pH 5.5 (5.0-7.0)
[2024-03-14 16:26] VITALS: BP 112/73; TEMP 97.6
--- NOTE | 2024-03-14 17:46 | P.SSS ---
Patient History Date of Service: 03/14/24 Reason for admission: eye pain History of Present Illness: SHELDON HAS HAD HEAD PAIN L SIDE OFF AND ON FOR A FEW WEEKS. I DID PALPATION OF HER EPISCOPALIAN ARE AND HAD NO TENDERNESS. THERE ARE NO OTHER SYMPTOMS UNTIL YESTERDAY SHE FOUND THAT HER L EYE VISION IS DOWN FROM 20/20 TO 20/40. I ASKED HER TO SEE ADVERTISING CAMPAIGN MANAGER FOR THE PAIN BEHIND THE EYE. I ALSO ORDERED MRI WITH CONTRAST FOR HER. BEFORE ALL THAT SHE ENDS UP IN ER WORRIED. SHE HAD MRI OF BRAIN THAT SHOWED WHITE MATER ISCHEMIC CHANGES AND DR. THAO RULED OUT MS. CRP WAS MILD HIGH AT 7.5. SHE INITIALLY REFUSED STEROIDS BUT SHE LATER AGREED TO TAKE IT. SHE IS STABLE FOR DISCHARGE. THERE WAS NO REAL REASON TO ADMIT BUT SHE WAS ADMITTED SHE CAME TO ER TWICE YESTERDAY. Allergies levofloxacin Allergy (Verified 03/13/24 22:49) Anaphylaxis Home Medications: Acetaminophen [Tylenol Extra Strength] 500 mg PO Q6HP PRN 03/14/24 Amitriptyline [Elavil*] 10 mg PO BEDTIME 03/14/24 predniSONE [Deltasone] 20 mg PO BID #60 tab 03/14/24 - Past Medical/Surgical History Has patient received pneumonia vaccine in the past: Yes Diabetic: No -: Osteopenia - Social History Smoking Status: Never smoker Alcohol use: No CD- Drugs: No Caffeine use: Yes Place of Residence: Home Review of Systems 10-point ROS is otherwise unremarkable Physical Examination - Vital Signs Temperature: 97.6 F Blood Pressure: 112/73 Pulse: 89 Respirations: 16 Pulse Ox (%): 97 - Physical Exam General: In no apparent distress, Oriented x3, Other (ANXIOUS.) HEENT: Atraumatic, PERRLA, Mucous membr. moist/pink, EOMI, Sclerae nonicteric Neck: Supple, 2+ carotid pulse no bruit, No LAD, Without JVD or thyroid abnormality Respiratory: Clear to auscultation bilaterally, Normal air movement Cardiovascular: Regular rate/rhythm, Normal S1 S2 Gastrointestinal: Normal bowel sounds, No tenderness Musculoskeletal: No tenderness Integumentary: No rashes Neurological: Normal gait, Normal speech, Normal strength at 5/5 x4 extr, Normal tone, Normal affect Lymphatics: No axilla or inguinal lymphadenopathy - Studies Laboratory Data (last 24 hrs) 03/13/24 03/13/24 21:33 21:33 WBC 8.10 Hgb 12.9 Hct 38.1 Plt Count 274 Sodium 138 Potassium 3.8 BUN 19 H Creatinine 0.94 Glucose 99 - Diagnosis (Problem(s)) (1) Temporal arteritis Current Visit: Yes Status: Acute Plan: I AM NOT SURE ABOUT THIS DIAGNOSIS BUT WITH SUSPICION SHE WILL BE GIVEN STEROIDS. SHE WILL FU IN OFFICE IN ONE WEEK. MAY NEED STEROIDS FOR A YEAR IF IT WORKS. BIOPSY MAY NOT HELP THE TREATMENT PLAN WITH TEMPORAL ARTERITIS. 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
[2024-03-14] MEDS ORDERED: AMITRIPTYLINE 10 MG TAB PO SCH (21:00)
--- NOTE | 2024-03-14 22:42 | CON ---
Reason For Consultation: This consultation was called by Dr. Marie because the patient has some pain in the left temporal region and issues of vision. History Of Present Illness: Ms. Damon is a 68-year-old patient with osteopenia and is highly worri ed about multiple fractures. She has had lumbar fracture and wrist fracture. She has osteoporosis, and she is on medications for that. She has had since around February 09, some issues of left tempora l pain with vision issues and pain in the left ear. She had described blurry vision as well. She wa s seen by Dr. Marie, her primary care physician, after actually having seen the promotion specialist and E NT physicians, and the finding overall was that there was a significant decrease in visual acuity in the left eye down to about 20/40 from over a 3 months' period. The worry or concern had been for mul tiple sclerosis or flare up of such. At [facility], the MRI identified multiple small vesse l ischemic changes, the largest in size in the brain appeared around 7 mm. Her differential diagnosi s on the radiologist's part did include multiple sclerosis as a possible etiology. The images were n ot available, just a report. It is unclear if the findings are consistent with the pattern associate d with MS, such as the Scott fingers patterns or if there are more ischemic patterns. In any event the patient was admitted for a course of intravenous steroids; however, she decided that she would no t have the steroids as she is worried about bone loss. The other option is for the patient to have a lumbar puncture to rule out elevated protein and white blood cell count and oligoclonal bands to det ermine if she really has MS. In discussion with Dr. Marie, the consideration for temporal arteritis was raised as the patient had left temporal pain, in the orbital region, and decreased visual acuity. This was discussed with her and she actually is still deciding to think about the steroids and did not want IV steroids at this point. The blood work showed essentially unremarkable complete blood co unt with differential. The basic metabolic panel essentially as well unremarkable; however, C-reacti ve protein was elevated to 7.48. ESR not done in the hospital. The possibility of a temporal artery biopsy was discussed with the patient and Dr. Marie will make that determination. Past Medical History: As noted, osteopenia. Allergies: LEVAQUIN. Current Medications: Tylenol, Elavil, and Zofran. Family History: Noncontributory. Social History: No alcohol, tobacco, or IV drug use. Review of Systems: Again, headache in the left temporal region and retro-orbital region, blurred vision, some problems w ith balance loss and falls resulting in fractures. She said the last one occurred with the last stor m. She was moving a heavy object when she fell and broke the lumbar vertebrae. She did receive an i njection for that and said it did not help much. Our review of systems otherwise negative. Physical Examination: Vital Signs: Blood pressure 112/73, pulse 89, respiratory rate 16, temperature 97.6, O2 saturation 9 7%. Weight 152 pounds, height 5 feet 6 inches, BMI 24.5. General: Ms. Damon is resting comfortably in bed. She is in no acute distress. HEENT: She is normocephalic, atraumatic. Sclerae anicteric. Oropharynx pink and moist. Neck: Supple. Chest: Clear. Heart: Regular. Extremities: Show no significant edema, cyanosis, or clubbing. She does have mild tenderness to pal pation in the left temporal region. She has mildly decreased visual acuity in the left eye compared to the right side. She does not have any asymmetries of the nasolabial fold. The left eye palpebral fissures seem slightly more open than the right. Otherwise, no obvious cranial nerve deficits. No focal deficits in the arm and leg. No focal sensory deficits. Coordination deficits also nonfocal. She did not have any significant difficulty standing and ambulating. Assessment: Ms. Damon is a 68-year-old patient with about a month's worth of left temporal pain an d some decrease in vision. She has elevated C-reactive protein of 7.48. The patient was instructed that steroids will be very helpful at this point, but she is so concerned about taking steroids and h aving more brittle bones. The other option is for her to have the biopsy to really make a determinat ion of temporal arteritis and rule out. She, on report of the MRI, had the differential including mu ltiple sclerosis, which is less likely and the patient was instructed lumbar puncture would be very h elpful, but she would want to hold off on that. She did agree to start taking a small aspirin, that is 81 mg daily; follow up in clinic; and may reconsider the additional imaging that may be helpful, w hich will be lumbar puncture for ruling out oligoclonal bands, elevated white blood cell count, and e levated protein. After discharge, she is instructed to follow up in Dr. Squires's office within a [facility]. JEROME/GERBER Voice ID: [id number] Report ID: [id number]
== END 2024-03-14 18:28 | disposition home or self-care (01) ==
LOC: ER 19:34 → INTOOBSV 22:41 → 4TH 22:41
PROVIDERS: ADMIT Internal Medicine; ATTEND Internal Medicine
DX: R51.9 Headache, unspecified (principal); R90.82 White matter disease, unspecified; H54.7 Unspecified visual loss; H92.02 Otalgia, left ear; M85.80 Other specified disorders of bone density and structure, unspecified site; M81.0 Age-related osteoporosis without current pathological fracture; Z88.8 Allergy status to other drugs, medicaments and biological substances
CPT/HCPCS: 96361; 85025 ×2; 81001; 80048; 36415 ×2; 80053; 86140; 96375; 96374; 99285; J1200; J7030; G0378; J2919